=== PATIENT | female | born 1995 | race Caucasian/White ===

== ENCOUNTER 2020-07-09 22:18 | Inpatient (IN) ==
[2020-07-09] MEDS ORDERED: Famotidine 20 MG/2 ML VIAL IVP PRN (23:08)
[2020-07-09] MEDS ORDERED: Naloxone 0.4 MG/ML INJ IVP PRN (23:08)
[2020-07-09] MEDS ORDERED: Azithromycin 500 MG in 0.9 % Sodium Chloride 250 ML IVPB ONE (23:08)
[2020-07-09] MEDS ORDERED: *HR* Nalbuphine 10 MG/ML AMPUL IV PRN (23:08)
[2020-07-09 23:31] LABS: Basophils % 0.2 %; Eosinophils # 0.1 K/mcL (0.0-0.6); Eosinophils % 1.3 %; Hematocrit 33.6 % (35.3-44.9); Hemoglobin 11.1 g/dL (11.5-15.4); Immature Granulocytes % 0.4 % (0-4); Lymphocytes # 2.3 K/mcL (0.6-4.6); Lymphocytes % 22.7 %; Mean Corpuscular Hemoglobin 28.7 pg (28.0-33.3); Mean Corpuscular Volume 86.8 fL (83.0-100.0); Mean Platelet Volume 10.8 fL (9.4-12.4); Monocytes # 1.2 K/mcL (0.0-1.3); Monocytes % 11.5 %; Neutrophils # 6.5 K/mcL (1.6-8.9); Platelet Count 215 K/mcL (140-400); Red Blood Count 3.87 M/mcL (3.82-4.97); Red Cell Distribution Width 13.5 % (11.5-14.5); Segmented Neutrophils % 63.9 %; White Blood Count 10.2 K/mcL (4.3-11.1)
[2020-07-09 23:38] LABS: Amphetamine Screen,Urine Negative ng/mL (Cutoff=1000); Barbiturate Screen,Urine Negative ng/mL (Cutoff=200); Benzodiazepines Screen,Urine Negative ng/mL (Cutoff=200); Cannabinoid Screen,Urine Negative ng/mL (Cutoff = 50); Cocaine Screen,Urine Negative ng/mL (Cutoff= 300); Opiate Screen,Urine Negative ng/mL (Cutoff=300); Phencyclidine Screen,Urine Negative ng/mL (Cutoff=25)
[2020-07-10 00:08] LABS: Influenza A PCR Negative (Negative); Influenza B PCR Negative (Negative); Resp. Syncytial Virus PCR Negative (Negative)
[2020-07-10 00:15] LABS: SARS-CoV-2 by PCR (In House) Negative (Negative)
[2020-07-10] MEDS ORDERED: miSOPROStoL 25 MCG TABLET PO PRN (00:27)
[2020-07-10] MEDS ORDERED: EPHEDrine 50 MG/ML VIAL IVP PRN (07:41)
[2020-07-10] MEDS ORDERED: Oxytocin 20 units/ LR 1000 mL 20 UNIT/1,000 ML BAG IVC SCH ×2 (08:00→19:47)
[2020-07-10] MEDS ORDERED: Ropivacaine/PF 0.2% 20 ML VIAL ONE (08:12)
[2020-07-10] MEDS ORDERED: *HR* FentaNYL (PF) 100 MCG/2 ML VIAL ONE (08:12)
[2020-07-10] MEDS: Ondansetron 4 MG/2 ML VIAL IVP PRN ×2 (08:55→17:40)
[2020-07-10] MEDS: Ringers Solution, Lactated 1,000 ML IVC SCH ×2 (08:56→12:25)
[2020-07-10] MEDS: Epidural Premix (fent/bupiv) 110 ML EP SCH ×2 (12:13→18:09)
[2020-07-10] MEDS ORDERED: Measles/Mumps/Rubella Vacc 0.5 ML VIAL SQ PRN (19:47)
[2020-07-10] MEDS ORDERED: Rho Immune Globulin 1,500 UNIT SYRINGE IM PRN (19:47)
[2020-07-10] MEDS ORDERED: Ondansetron ODT 4 MG TAB.RAPDIS PO PRN (20:43)
[2020-07-10] MEDS ORDERED: BuPROPion SR (12 HR) 150 MG TABLET PO SCH (21:00)
[2020-07-10] MEDS: Sucralfate 1 GM TABLET PO SCH (23:38)
[2020-07-10] MEDS: Acetaminophen 325 MG TABLET PO PRN (23:38)
[2020-07-11 04:17] LABS: Basophils % 0.1 %; Eosinophils # 0.1 K/mcL (0.0-0.6); Eosinophils % 0.6 %; Hematocrit 32.5 % (35.3-44.9); Hemoglobin 10.4 g/dL (11.5-15.4); Immature Granulocytes % 0.6 % (0-4); Lymphocytes # 2.2 K/mcL (0.6-4.6); Lymphocytes % 15.7 %; Mean Corpuscular Hemoglobin 28.7 pg (28.0-33.3); Mean Corpuscular Volume 89.5 fL (83.0-100.0); Mean Platelet Volume 10.5 fL (9.4-12.4); Monocytes # 1.3 K/mcL (0.0-1.3); Monocytes % 9.2 %; Neutrophils # 10.4 K/mcL (1.6-8.9); Platelet Count 180 K/mcL (140-400); Red Blood Count 3.63 M/mcL (3.82-4.97); Red Cell Distribution Width 13.5 % (11.5-14.5); Segmented Neutrophils % 73.8 %; White Blood Count 14.1 K/mcL (4.3-11.1)
[2020-07-11] MEDS: Ibuprofen 600 MG TABLET PO PRN ×2 (04:23→12:17)
[2020-07-11] MEDS: Acetaminophen 325 MG TABLET PO PRN ×2 (07:51→18:21)
[2020-07-11] MEDS: Sucralfate 1 GM TABLET PO SCH (07:52)
[2020-07-11] MEDS ORDERED: (Budesonide [Entocort Ec] 3 MG Capdr...Er) PO SCH (09:00)
[2020-07-11] MEDS ORDERED: Prenatal Vit/FA 1 EACH TABLET PO SCH (09:00)
[2020-07-11] MEDS ORDERED: DOCUSATE SODIUM 100 MG PO SCH (09:00)
[2020-07-11] MEDS ORDERED: Benzocaine/Menthol 56 GM AEROSOL SPRAY TP PRN (10:35)
[2020-07-11] MEDS: *HR* HYDROcodone/Acet 5/325 mg TABLET PO PRN ×2 (13:13→19:55)
[2020-07-11 15:48] VITALS: BP 109/76
== END 2020-07-11 20:15 | disposition home or self-care (01) | DRG 807 ==
LOC: 1NENULAB 22:18 → 1NENUOBS 07-10 22:15
PROVIDERS: ADMIT Advanced Practice Midwife; ATTEND Advanced Practice Midwife

== ENCOUNTER 2021-05-06 14:55 | Observation (INO) ==
[2021-05-06] MEDS ORDERED: Ondansetron 4 MG/2 ML VIAL IVP PRN (16:51)
[2021-05-06] MEDS ORDERED: Ibuprofen 400 MG TABLET PO PRN (16:51)
[2021-05-06] MEDS ORDERED: Naloxone 0.4 MG/ML INJ IVP PRN (16:51)
[2021-05-06] MEDS ORDERED: Melatonin 3 MG TABLET PO PRN (16:51)
[2021-05-06] MEDS: Ringers Solution, Lactated 1,000 ML IVC SCH (17:20)
[2021-05-06 18:21] LABS: Basophils % 0.2 %; Eosinophils % 0.2 %; Hemoglobin 10.1 g/dL (11.5-15.4); Immature Granulocytes % 0.4 % (0-4); Lymphocytes # 0.6 K/mcL (0.6-4.6); Lymphocytes % 5.6 %; Mean Corpuscular HGB Conc 30.6 g/dL (31.6-35.5); Mean Corpuscular Hemoglobin 25.8 pg (28.0-33.3); Mean Corpuscular Volume 84.2 fL (83.0-100.0); Mean Platelet Volume 9.1 fL (9.4-12.4); Monocytes # 0.4 K/mcL (0.0-1.3); Monocytes % 3.9 %; Neutrophils # 9.1 K/mcL (1.6-8.9); Platelet Count 382 K/mcL (140-400); Red Blood Count 3.92 M/mcL (3.82-4.97); Red Cell Distribution Width 15.2 % (11.5-14.5); Segmented Neutrophils % 89.7 %; White Blood Count 10.1 K/mcL (4.3-11.1)
[2021-05-06 18:42] LABS: BUN/Creatinine Ratio 14 (6-26); Blood Urea Nitrogen 8 mg/dL (6-20); Calcium 9.1 mg/dL (8.6-10.3); Carbon Dioxide 19 mEq/L (23-29); Chloride 105 mEq/L (98-107); Glucose 92 mg/dL (70-105); Osmolality,Calculated 280 (280-300); Potassium 3.4 mEq/L (3.5-5.1); Sodium 136 mEq/L (136-145); eGFR For African Americans > 60 (> 60); eGFR For Non-African Americans > 60 (> 60)
[2021-05-06] MEDS ORDERED: Prochlorperazine 10 MG/2 ML VIAL IVP PRN (19:40)
[2021-05-06] MEDS: BuPROPion SR (12 HR) 150 MG TABLET PO SCH (21:27)
[2021-05-06] MEDS: methylPREDNISolone 125 MG/2 ML VIAL IVP SCH (22:53)
[2021-05-07] MEDS: BuPROPion SR (12 HR) 150 MG TABLET PO SCH ×2 (08:36→20:08)
[2021-05-07] MEDS: methylPREDNISolone 125 MG/2 ML VIAL IVP SCH ×3 (08:37→22:59)
[2021-05-07] MEDS ORDERED: Potassium Chloride Elixir 20 MEQ/15 ML UDC PO ONE (10:01)
[2021-05-07] MEDS: Ringers Solution, Lactated 1,000 ML IVC SCH (15:12)
[2021-05-07] MEDS: Pantoprazole 40 MG VIAL IVP SCH (20:08)
[2021-05-07] MEDS ORDERED: Acetaminophen 325 MG TABLET PO ONE (20:17)
[2021-05-08 02:40] VITALS: O2SAT 99
[2021-05-08] MEDS ORDERED: Pantoprazole 40 MG VIAL IVP SCH (06:00)
[2021-05-08 07:55] VITALS: BP 109/71; PULSE 88; TEMP 97.5
[2021-05-08] MEDS: Pantoprazole 40 MG VIAL IVP SCH (08:21)
[2021-05-08] MEDS: methylPREDNISolone 125 MG/2 ML VIAL IVP SCH (08:21)
[2021-05-08] MEDS: BuPROPion SR (12 HR) 150 MG TABLET PO SCH (08:21)
== END 2021-05-08 12:15 | disposition home or self-care (01) ==
LOC: 3BNU → SUATTDRO 15:09
PROVIDERS: ADMIT Student in an Organized Health Care Education/Training Program; ATTEND Internal Medicine